=== PATIENT | female | born 1985 | race African-American/Black ===

== ENCOUNTER 2023-02-25 12:15 | Emergency (ER) | payer OTHER ==
[~2023-02-25] VITALS: Ht 165.1 cm; Wt 81.0 kg
[2023-02-25 12:35] VITALS: BP 120/87; PULSE 93; RESP 20; TEMP 98; O2SAT 100
== END 2023-02-25 13:35 | disposition home or self-care (01) ==
LOC: ER 12:15
DX: R05.9 Cough, unspecified (principal); R09.81 Nasal congestion; Z20.822 Contact with and (suspected) exposure to COVID-19
CPT/HCPCS: 99283; 87426; C9803